=== PATIENT | female | born 1990 | race American Indian/Alaskan Native ===

== ENCOUNTER 2017-07-15 20:27 | Emergency (ER) | payer SELFPAY | END 2017-07-15 23:15 | disposition left against medical advice (07) | LOC: ED 20:27 | DX: R10.9 Unspecified abdominal pain (principal); Z53.21 Procedure and treatment not carried out due to patient leaving prior to being seen by health care provider ==

== ENCOUNTER 2017-07-18 10:22 | Emergency (ER) | payer OTHER ==
[2017-07-18 11:20] VITALS: BP 115/78
[2017-07-18 11:38] LABS: Basophils % (Auto) 0.5 % (0.0-1.8); Eosinophils % (Auto) 0.1 % (0.0-4.3); Hemoglobin 11.1 gm/dl (10.1-14.3); Lymphocytes # (Auto) 2.2 K/mm3 (1.2-5.4); Lymphocytes % (Auto) 21.8 % (13.4-35.0); Mean Corpuscular HGB Conc 32 % (30-34); Mean Corpuscular Hemoglobin 27 pg (28-32); Mean Corpuscular Volume 84 fl (79-97); Monocytes # (Auto) 0.7 K/mm3 (0.0-0.8); Monocytes % (Auto) 6.6 % (0.0-7.3); Platelet Count 298 K/mm3 (140-440); Red Blood Count 4.15 M/mm3 (3.65-5.03); Red Cell Distribution Width 16.1 % (13.2-15.2)
[2017-07-18 11:58] LABS: Albumin 3.7 g/dL (3.9-5); BUN/Creatinine Ratio 24; Blood Urea Nitrogen 12 mg/dL (7-17); Calcium 8.7 mg/dL (8.4-10.2); Hemolysis Index 8
[2017-07-18 12:08] LABS: Bilirubin,Urine NEG (Negative); Blood,Urine NEG (Negative); Color,Urine Yellow (Yellow); Mucus,Urine 3+ /HPF; Nitrite,Urine NEG (Negative)
[2017-07-18 12:14] LABS: Alanine Aminotransferase < 5 units/L (7-56)
--- NOTE | 2017-07-18 13:11 | Ultrasound Report ---
History: Abdominal pain. Findings: Gestation: Single Position: Breech Amniotic Fluid: Normal SARA = cm Placenta: Anterior Placental Grade: 0 Heart Rate: 156 BPM Cervical length: 3.5 cm (Normal > 3 cm) It is too early for a anatomical survey BPD: 3.8 cm = 17 w 3 d HC: 14.1 cm = 17 w 3 d AC: 12.5 cm = 18 w 1 d FL: 2.5 cm = 17 w 4 d HC/AC Ratio: 1.1 Cephalic Index: 79.9 Estimated Weight: 10 grams LMP: 03/26/17 Clinical age = 16 w 2 d EDC: 12/31/17 US Gest. Age = 17 w 5 d EDC: 12/21/17
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
== END 2017-07-18 14:51 | disposition home or self-care (01) ==
LOC: ED 10:22
DX: O26.892 Other specified pregnancy related conditions, second trimester (principal); R10.2 Pelvic and perineal pain; O16.2 Unspecified maternal hypertension, second trimester; O99.512 Diseases of the respiratory system complicating pregnancy, second trimester; J45.909 Unspecified asthma, uncomplicated; Z3A.17 17 weeks gestation of pregnancy; Z88.0 Allergy status to penicillin
CPT/HCPCS: 36415; 76805; 80053; 81001; 84702; 85025; 99284